=== PATIENT | female | born 1970 | race Caucasian/White ===

== ENCOUNTER 2016-02-28 17:28 | Inpatient (IN) | payer BC ==
[~2016-02-28] VITALS: Ht 157.5 cm; Wt 65.4 kg
[2016-02-28] MEDS ORDERED: LEVOFLOXACIN 500 MG TAB ONE (19:51)
[2016-02-28] MEDS ORDERED: MAG HYDROX 30 ML UDC PO PRN (21:05)
[2016-02-28] MEDS ORDERED: HALOPERIDOL 5 MG/ML VIAL IM PRN (21:05)
[2016-02-28] MEDS ORDERED: TRAZODONE 50 MG TAB PO PRN (21:05)
[2016-02-28] MEDS ORDERED: DIPHENHYDRAMINE 50 MG CAP PO PRN (21:05)
[2016-02-28] MEDS ORDERED: HALOPERIDOL 5 MG TAB PO PRN (21:05)
[2016-02-28] MEDS ORDERED: LORAZEPAM 2 MG/ML VIAL IM PRN (21:05)
[2016-02-28] MEDS ORDERED: ALU/MAG/SIM 30 ML UDC PO PRN (21:05)
[2016-02-28] MEDS ORDERED: DIPHENHYDRAMINE 50 MG/ML VIAL IM PRN (21:05)
[2016-02-28] MEDS ORDERED: LORAZEPAM 2 MG TAB PO PRN (21:05)
[2016-02-28 23:11] VITALS: BP_SYST 137; RESP 18; TEMP 98.5
[2016-02-28 23:12] VITALS: Ht 157.5 cm; Wt 65.4 kg
[2016-02-28] MEDS ORDERED: MELOXICAM 7.5 MG TAB PO SCH (23:40)
[2016-02-29] MEDS: TOPIRAMATE 25 MG TAB PO SCH ×2 (00:23→21:18)
[2016-02-29] MEDS: TIZANIDINE 4 MG TAB PO SCH ×2 (00:26→21:19)
[2016-02-29] MEDS: BUSPIRONE HCL 10 MG TAB PO SCH ×2 (00:26→09:50)
[2016-02-29] MEDS: GABAPENTIN 400 MG CAP PO SCH ×5 (00:26→21:17)
[2016-02-29] MEDS: PANTOPRAZOLE 40 MG TAB PO SCH (06:39)
[2016-02-29] MEDS: VENLAFAXINE XR 150 MG CAP PO SCH ×2 (08:50→09:50)
[2016-02-29] MEDS ORDERED: MELOXICAM 7.5 MG TAB PO PRN (10:25)
[2016-02-29] MEDS: ACETAMINOPHEN 325 MG TAB PO PRN ×2 (10:28→17:32)
[2016-02-29 10:52] VITALS: BP_SYST 120; RESP 18; TEMP 98.4
[2016-02-29] MEDS: BUPROPION XL 150 MG TAB PO SCH (14:20)
[2016-02-29] MEDS: ARIPiprazole 5 MG TABLET PO SCH (14:25)
[2016-02-29] MEDS: LEVOFLOXACIN 500 MG TAB PO SCH (14:25)
[2016-02-29 19:27] VITALS: BP_SYST 111; RESP 18; TEMP 97.5
[2016-02-29] MEDS: DOXEPIN 50 MG CAP PO SCH (21:17)
[2016-03-01] MEDS: PANTOPRAZOLE 40 MG TAB PO SCH (07:11)
[2016-03-01] MEDS: VENLAFAXINE XR 75 MG CAP PO SCH (09:00)
[2016-03-01] MEDS: LEVOFLOXACIN 500 MG TAB PO SCH (09:00)
[2016-03-01] MEDS: ARIPiprazole 5 MG TABLET PO SCH (09:00)
[2016-03-01] MEDS: GABAPENTIN 400 MG CAP PO SCH ×4 (09:00→21:41)
[2016-03-01] MEDS: BUPROPION XL 150 MG TAB PO SCH (09:00)
[2016-03-01 09:56] VITALS: BP_SYST 135; RESP 18; TEMP 97.7
[2016-03-01] MEDS: ACETAMINOPHEN 325 MG TAB PO PRN (14:17)
[2016-03-01 19:17] VITALS: BP_SYST 121; RESP 18; TEMP 98.6
[2016-03-01] MEDS: DOXEPIN 50 MG CAP PO SCH (21:41)
[2016-03-01] MEDS: TOPIRAMATE 25 MG TAB PO SCH (21:41)
[2016-03-01] MEDS: TIZANIDINE 4 MG TAB PO SCH (21:41)
[2016-03-02] MEDS: ACETAMINOPHEN 325 MG TAB PO PRN ×3 (02:36→15:20)
[2016-03-02] MEDS: PANTOPRAZOLE 40 MG TAB PO SCH (06:40)
[2016-03-02 07:00] VITALS: BP_SYST 136; RESP 18; TEMP 98.7
[2016-03-02] MEDS: LEVOFLOXACIN 500 MG TAB PO SCH (09:00)
[2016-03-02] MEDS: BUPROPION XL 150 MG TAB PO SCH (09:00)
[2016-03-02] MEDS: VENLAFAXINE XR 75 MG CAP PO SCH (09:00)
[2016-03-02] MEDS: GABAPENTIN 400 MG CAP PO SCH ×4 (09:00→21:29)
[2016-03-02] MEDS: ARIPiprazole 5 MG TABLET PO SCH (09:00)
[2016-03-02 19:10] VITALS: BP_SYST 142; RESP 18; TEMP 99
[2016-03-02] MEDS ORDERED: TRAZODONE 50 MG TAB PO SCH (21:00)
[2016-03-02] MEDS: TOPIRAMATE 25 MG TAB PO SCH (21:29)
[2016-03-02] MEDS: TIZANIDINE 4 MG TAB PO SCH (21:29)
[2016-03-03] MEDS: ACETAMINOPHEN 325 MG TAB PO PRN (01:52)
[2016-03-03] MEDS: PANTOPRAZOLE 40 MG TAB PO SCH (06:24)
[2016-03-03 07:35] VITALS: BP_SYST 128; RESP 17; TEMP 98.7
[2016-03-03] MEDS: LEVOFLOXACIN 500 MG TAB PO SCH (08:34)
[2016-03-03] MEDS: BUPROPION XL 150 MG TAB PO SCH (08:34)
[2016-03-03] MEDS: VENLAFAXINE XR 75 MG CAP PO SCH (08:34)
[2016-03-03] MEDS: GABAPENTIN 400 MG CAP PO SCH (08:34)
[2016-03-03] MEDS: ARIPiprazole 5 MG TABLET PO SCH (08:34)
== END 2016-03-03 11:10 | disposition home or self-care (01) | DRG 885 ==
LOC: ENRESERV → ENRESERVDT → ENRESERVTM → EEVIPCON 17:28 → ER 17:28 → EMR 19:47 → PSY 21:34
PROVIDERS: ADMIT Psychiatry & Neurology Psychiatry; ATTEND Psychiatry & Neurology Psychiatry
DX: F33.9 Major depressive disorder, recurrent, unspecified (principal); N39.0 Urinary tract infection, site not specified; M79.7 Fibromyalgia
CPT/HCPCS: 36415; 80053; 80307; 80320; 80329; 81001; 84439; 84443; 85025; 85610; 87077; 87088; 87186